=== PATIENT | female | born 1995 ===

== ENCOUNTER 2016-07-16 16:23 | Emergency (ER) | payer BC ==
--- NOTE | 2016-07-16 17:41 | UC ---
Throat Pain/Nasal Catracho HPI - HPI Summary HPI Summary: complaint of cough and nasal congestion that started 3 daysa go jignesh headaches has had hot and cold flashes ribs hurt from coughing hard denies body aches , sore throat, ear pain takinf ibuprofen without relief - History of Current Complaint Chief Complaint: UCGeneralIllness Stated Complaint: COUGH/CONGESTION/RIB PAIN Time Seen by Provider: 07/16/16 17:38 Hx Last Menstrual Period: 07/09/16 - Allergies/Home Medications Allergies/Adverse Reactions: Allergies Allergy/AdvReac Type Severity Reaction Status Date / Time No Known Allergies Allergy Verified 07/16/16 17:22 Home Medications: Home Medications Etonogestrel IMPLANT(NF) [Implanon (NF)] 68 mg IMPLANT DAILY 07/16/16 [History Confirmed 07/16/16] Ibuprofen [Advil] 600 mg PO Q6HR PRN 07/16/16 [History Confirmed 07/16/16] PMH/Surg Hx/FS Hx/Imm Hx Previously Healthy: Yes - Surgical History Surgical History: None - Family History Known Family History: Negative: Cardiac Disease, Hypertension, Diabetes - Social History Occupation: Student Lives: With Family Alcohol Use: Rare Substance Use Type: None Smoking Status (MU): Never Smoked Tobacco Review of Systems Constitutional: Chills Skin: Negative Eyes: Negative ENT: Nasal Discharge Respiratory: Cough Cardiovascular: Negative Gastrointestinal: Negative Genitourinary: Negative Motor: Negative Neurovascular: Negative Musculoskeletal: Negative Neurological: Negative Psychological: Negative All Other Systems Reviewed And Are Negative: Yes Physical Exam Triage Information Reviewed: Yes Appearance: No Pain Distress, Well-Nourished Vital Signs: Initial Vital Signs Temp 98.3 F 07/16/16 17:16 Pulse 85 07/16/16 17:16 Resp 16 07/16/16 17:16 BP 115/76 07/16/16 17:16 Pulse Ox 98 07/16/16 17:16 Vital Signs Reviewed: Yes Eyes: Positive: Conjunctiva Clear ENT: Positive: Pharynx normal, Nasal congestion, TMs normal Neck: Positive: No Lymphadenopathy Respiratory: Positive: Lungs clear, Normal breath sounds, No respiratory distress Cardiovascular: Positive: RRR, No Murmur, Pulses Normal Abdomen Description: Positive: Nontender, Soft Bowel Sounds: Positive: Present Musculoskeletal Exam: Normal Neurological: Positive: Alert Psychological Exam: Normal Skin Exam: Normal Throat Pain/Nasal Course/Dx - Differential Dx/Diagnosis Differential Diagnosis/HQI/PQRI: Pharyngitis, Sinusitis, URI Provider Diagnoses: URI Discharge - Discharge Plan Condition: Stable Disposition: HOME Prescriptions: Benzonatate CAP* [Tessalon CAP*] 100 mg PO TID PRN #30 cap PRN Reason: Cough Patient Education Materials: Upper Respiratory Infection (ED) Forms: *School Release Additional Instructions: Increase fluids and rest Take acetaminophen or ibuprofen for fever or pain Please review your discharge instructions. If your symptoms do not improve please call your primary care provider or return to urgent care
[2016-07-16 18:13] VITALS: BP 115/76
== END 2016-07-16 18:03 | disposition home or self-care (01) ==
LOC: UCCORT 16:23
DX: J06.9 Acute upper respiratory infection, unspecified (principal)
CPT/HCPCS: 99202; G0463